=== PATIENT | male | born 1950 | race Caucasian/White ===

== ENCOUNTER 2019-01-23 07:12 | Outpatient (CLI) | payer MEDICARE ==
[2019-01-23 07:40] LABS: #Basophils 0.1 thou/uL (0.0-0.2); #Eosinphils 0.2 thou/uL (0.0-0.7); #Lymphocytes 3.3 thou/uL (1.20-3.40); #Monocytes 0.6 thou/uL (0.11-0.59); #Neutrophils 4.5 thou/uL (1.40-6.50); %Basophils 1.6 % (0.0-1.0); %Eosinophils 2.7 % (0.0-10.0); %Lymphocytes 37.9 % (21.0-51.0); %Monocytes 6.4 % (0.0-10.0); %Neutrophils 51.4 % (42.0-75.0); Mean Corpuscular HGB CONC 33.2 g/dL (32.0-36.0); Mean Corpuscular Hemoglobin 31.5 pg (27.0-31.0); Mean Corpuscular Volume 94.8 fL (78.0-98.0); Mean Platelet Volume 7.6 fL (7.4-10.4); Platelet Count 227 thou/uL (130-400); RBC Distribution Width 11.5 % (11.5-14.5); Red Blood Cell (RBC) Count 4.44 mill/uL (4.70-6.10); White Blood Cell (WBC) Count 8.7 thou/uL (4.8-10.8)
[2019-01-23 07:52] LABS: Anion Gap 16 mmol/L (10-20); BUN (Urea Nitrogen) 18 mg/dL (8.4-25.7); Calc. Creatinine Clearance 0 mL/min (70-130); Calcium 9.7 mg/dL (7.8-10.44); Carbon Dioxide 25 mmol/L (23-31); Cardiac Risk 5.2 (Less than 4.5); Chloride 108 mmol/L (98-107); Cholesterol 187 mg/dl (< 200 Desired); Estimated GFR-MDRD 77; Glucose 122 mg/dL (80-115); HDL Cholesterol 36 mg/dL (>60 Neg Risk); LDL Cholesterol, Calculated 120 mg/dL; Potassium 4.5 mmol/L (3.5-5.1); Sodium 144 mmol/L (136-145); Triglycerides 156 mg/dL (Less than 150)
--- NOTE | 2019-01-23 08:14 | CT ---
CT lumbar spine noncontrast HISTORY: Low back pain. Right leg radiculopathy. Prior surgery. FINDINGS: Small ribs are present at the L1 level. Images of the retroperitoneum show hyperdense cyst associated with the left kidney. There is prominent calcification in the arterial structures with stenosis of the origin of each internal iliac artery. Fusiform ectasia of the lower abdominal aorta u p to 2.5 cm. Vertebral body heights and alignment are maintained. T12-L1, L1/2: Minimal disc bulges. Osteophytosis of the facets. Central canal and neural foramina are patent. L2-3: Mild disc bulge. Circumferential degenerative changes. Mild stenosis of the central canal and r ight neural foramen. Left neural foramen is patent. L3-4: Disc space narrowing. Posterior disc bulge. Prominent posterior ligamentous thickening and oste ophytosis. Severe stenosis of the central canal. Moderate to severe stenosis of each neural foramen. L4-5: Interbody disc replacement material. Posterior decompression of the central canal. Moderate rig ht and mild left foraminal stenoses. L5-S1: Posterior and anterior operative fixation. Posterior decompression of the thecal sac. Neural f oramina remain patent. IMPRESSION: Postoperative and multilevel degenerative changes throughout the lumbar spine as detailed above. Central canal and foraminal stenoses are greatest at the L3-4 level. Atherosclerosis with significant stenoses of the common iliac artery origins.
== END 2019-01-23 07:13 | disposition home or self-care (01) ==
LOC: MADLABBHPM 07:12
PROVIDERS: ATTEND Family Medicine
DX: R29.898 Other symptoms and signs involving the musculoskeletal system (principal); I25.10 Atherosclerotic heart disease of native coronary artery without angina pectoris; M47.816 Spondylosis without myelopathy or radiculopathy, lumbar region; M48.061 Spinal stenosis, lumbar region without neurogenic claudication; I70.0 Atherosclerosis of aorta
CPT/HCPCS: 36415; 72131; 80048; 80061; 85025

== ENCOUNTER 2020-05-11 09:28 | Outpatient (CLI) | payer MEDICARE ==
--- NOTE | 2020-05-11 10:42 | RAD ---
LEFT SHOULDER 3 VIEWS: Date: 05/11/2020 HISTORY: Chronic left shoulder pain. FINDINGS/IMPRESSION: There are degenerative changes in the acromioclavicular joint. No acute fracture, dislocation, or bon e destruction is seen. POS: AH
--- NOTE | 2020-05-11 12:25 | CT ---
CT ABDOMEN WITHOUT IV CONTRAST: Date: 05/11/2020 HISTORY: Ventral hernia, mesh has detached. Epigastric pain. COMPARISON: None. FINDINGS: Absence of oral and IV contrast reduces the sensitivity of exam, particularly for evaluation of solid organs and bowel. The lung bases are clear. No calcified gallstones are seen. No calculi seen in the kidneys or the vis ualized portions of the ureters. No hydroureteronephrosis seen on either side. No free air or free fluid is noted in the abdomen. There are vascular calcifications without evidence of aneurysmal dilatation of the abdominal aorta. The small bowel loops are not abnormally dilated. T here are degenerative changes in the spine. 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 No abdominal wall hernia is seen. IMPRESSION: No evidence of abdominal wall hernia. If there is an issue in the lower anterior abdominal wall/anter ior pelvic wall, this could be missed because this was not included on the scan. POS: DONITA
== END 2020-05-11 09:29 | disposition home or self-care (01) ==
LOC: MADRAD 09:28
PROVIDERS: ATTEND Family Medicine
DX: K43.9 Ventral hernia without obstruction or gangrene (principal); M25.512 Pain in left shoulder; M19.012 Primary osteoarthritis, left shoulder
CPT/HCPCS: 74150

== ENCOUNTER 2020-06-09 09:32 | Outpatient (CLI) | payer MEDICARE | END 2020-06-09 09:33 | disposition home or self-care (01) | LOC: MADLABBHPM 09:32 | PROVIDERS: ATTEND Family Medicine | DX: Z01.812 Encounter for preprocedural laboratory examination (principal) | CPT/HCPCS: 36415; 82565 ==

== ENCOUNTER 2020-06-10 08:02 | Outpatient (CLI) | payer MEDICARE ==
--- NOTE | 2020-06-10 09:02 | CT ---
CT OF THE ABDOMEN AND PELVIS WITH IV CONTRAST INDICATION: History of ventral hernia mesh with concern for detachment and epigastric abdominal pain COMPARISON: Noncontrast CT the abdomen dated May 11, 2020 FINDINGS: ABDOMEN: Lung bases: Clear Liver: Diffuse mild fatty liver Gallbladder: Normal appearing. Pancreas: Normal. Adrenal glands: Normal. Spleen: Normal. Kidneys and ureters: Normal. No hydronephrosis. Vasculature: There are moderate vascular calcifications seen involving the visualized vasculature. Lymph nodes:No lymphadenopathy. Free fluid in abdomen:No free fluid is evident. PELVIS: Small and large bowel: There is a mild amount retained stool within the colon. The small bowel is of normal caliber. The visualized stomach and proximal small bowel appear within normal limits. Appendix:Normal Bladder: Normal. Rectal and perirectal soft tissues:Normal. Reproductive structures: Normal. Free fluid in pelvis: No free fluid is evident. Lymphadenopathy pelvis: No lymphadenopathy is evident. Osseous structures: There is postsurgical change of an interbody fusion of L4-S1. There is scattered degenerative and osteoarthritic changes. Soft tissues:There is postprocedural change of an anterior midline abdominal wall hernia repair with associated hernia mesh. The mesh appears intact. No recurrent abdominal wall hernia is demonstrated. IMPRESSION: 1. Intact anterior midline abdominal wall hernia repair without evidence of recurrent hernia. 2. Mild fatty liver. 3. Mild amount retained stool within the colon.
[2020-06-10] MEDS ORDERED: Iopamidol 370 76% 100 ML VIAL ONE (12:00)
== END 2020-06-10 08:03 | disposition home or self-care (01) ==
LOC: MADCT 08:02
PROVIDERS: ATTEND Family Medicine
DX: K43.9 Ventral hernia without obstruction or gangrene (principal); K76.0 Fatty (change of) liver, not elsewhere classified; K59.00 Constipation, unspecified; Z98.890 Other specified postprocedural states
CPT/HCPCS: 74177; Q9967

== ENCOUNTER 2020-07-14 09:34 | Outpatient (CLI) | payer MEDICARE ==
--- NOTE | 2020-07-14 10:53 | RAD ---
PA AND LATERAL CHEST: HISTORY: Fall with chest wall pain. FINDINGS: Heart size and mediastinum are within normal limits. The lungs are clear of any infiltrates. A dors al column stimulator is present. No pneumothorax or pleural effusions. No rib fractures are visuali zed. IMPRESSION: No active intrathoracic disease. POS: DANETTE
--- NOTE | 2020-07-14 10:54 | RAD ---
RIGHT TIBIA FIBULA 2 VIEWS: History Fall with leg pain. FINDINGS: There are no signs of fracture or dislocation. IMPRESSION: Negative right tibia fibula. POS: DANETTE
--- NOTE | 2020-07-14 11:24 | RAD ---
RIGHT ANKLE 3 VIEWS: HISTORY: Injury from a fall, pain. FINDINGS: Minimal soft tissue swelling over the medial malleolus. There is some cortical irregularity of the d istal medial malleolus. This could represent a fracture. It is conceivable this could represent josé miguel e enthesophytic change. IMPRESSION: Evidence for cortical irregularity of the most distal medial malleolus tip concerning for a slightly comminuted fracture. Minimal soft tissue swelling. COMMENT: If the patient is not point tender at the distal medial malleolar tip, this could conceivably be rela lawrence to some enthesophytic change. POS: OFF
== END 2020-07-14 09:35 | disposition home or self-care (01) ==
LOC: MADRAD 09:34
PROVIDERS: ATTEND Family Medicine
DX: S89.91XA Unspecified injury of right lower leg, initial encounter (principal); R07.89 Other chest pain; M79.89 Other specified soft tissue disorders; R93.7 Abnormal findings on diagnostic imaging of other parts of musculoskeletal system
CPT/HCPCS: 71046

== ENCOUNTER 2021-11-13 09:00 | Outpatient (CLI) | payer MEDICARE ==
[2021-11-13 09:47] LABS: ALT (SGPT) 30 U/L (8-55); AST (SGOT) 24 U/L (5-34); Albumin 4.7 g/dL (3.4-4.8); Alkaline Phosphatase 77 U/L (40-110); Anion Gap 17 mmol/L (10-20); BUN (Urea Nitrogen) 18 mg/dL (8.4-25.7); Bilirubin, Total 0.6 mg/dL (0.2-1.2); Calc. Creatinine Clearance 0 mL/min (70-130); Calcium 9.7 mg/dL (7.8-10.44); Carbon Dioxide 25 mmol/L (23-31); Cardiac Risk 4.9 (Less than 4.5); Chloride 105 mmol/L (98-107); Cholesterol 146 mg/dl (< 200 Desired); Globulin 2.8 g/dL (2.4-3.5); Glucose 109 mg/dL (83-110); HDL Cholesterol 30 mg/dL (>60 Neg Risk); LDL Cholesterol, Calculated 89 mg/dL; Potassium 4.5 mmol/L (3.5-5.1); Protein, Total 7.5 g/dL (5.8-8.1); Sodium 142 mmol/L (136-145); Triglycerides 135 mg/dL (Less than 150)
[2021-11-13 09:59] LABS: Thyroid Stimulating Hormone 2.5108 uIU/mL (0.35-4.94)
[2021-11-13 10:04] LABS: #Basophils 0.1 thou/uL (0.0-0.2); #Eosinphils 0.2 thou/uL (0.0-0.7); #Lymphocytes 3.3 thou/uL (1.20-3.40); #Monocytes 0.6 thou/uL (0.11-0.59); #Neutrophils 4.9 thou/uL (1.40-6.50); %Basophils 1.3 % (0.0-1.0); %Eosinophils 2.1 % (0.0-10.0); %Lymphocytes 35.9 % (21.0-51.0); %Neutrophils 53.7 % (42.0-75.0); Hemoglobin 13.2 g/dL (14.0-18.0); Mean Corpuscular HGB CONC 32.3 g/dL (32.0-36.0); Mean Corpuscular Hemoglobin 33.1 pg (27.0-31.0); Mean Corpuscular Volume 102.5 fL (78.0-98.0); Mean Platelet Volume 10.8 fL (7.4-10.4); Platelet Count 253 thou/uL (130-400); Red Blood Cell (RBC) Count 3.99 mill/uL (4.70-6.10); White Blood Cell (WBC) Count 9.1 thou/uL (4.8-10.8)
[2021-11-13 18:08] LABS: Free T4 (Free Thyroxine) 0.9 ng/dL (0.70-1.48)
[2021-11-13 18:09] LABS: PSA-Asymptomatic (SCREENING) 0.81 ng/mL (0-4.0)
== END 2021-11-13 09:01 | disposition home or self-care (01) ==
LOC: MADRAD 09:00
PROVIDERS: ATTEND Family Medicine
DX: M25.512 Pain in left shoulder (principal); M89.8X1 Other specified disorders of bone, shoulder; E78.2 Mixed hyperlipidemia; E03.9 Hypothyroidism, unspecified; I25.10 Atherosclerotic heart disease of native coronary artery without angina pectoris; N40.0 Benign prostatic hyperplasia without lower urinary tract symptoms; I10 Essential (primary) hypertension; M47.22 Other spondylosis with radiculopathy, cervical region; M48.02 Spinal stenosis, cervical region; M19.012 Primary osteoarthritis, left shoulder
CPT/HCPCS: 36415; 72050; 80053; 80061; 84439; 84443; 85025; G0103